=== PATIENT | female | born 1970 | race Two or more races ===

== ENCOUNTER 2016-11-09 10:51 | Emergency (ER) | payer MEDICAID ==
[~2016-11-09] VITALS: Ht 157.5 cm; Wt 113.4 kg
[2016-11-09 11:21] VITALS: BP 142/84
[2016-11-09 12:21] LABS: Basophils # (auto) 0.1 uL; Basophils % (auto) 0.8 % (0.0-2.0); Eosinophils # (auto) 0.2 uL; Eosinophils % (auto) 1.7 % (0.0-7.0); Hematocrit 40.7 % (36.0-46.0); Lymphocytes # (auto) 2.3 uL; Lymphocytes % (auto) 19.9 % (10.0-50.0); Mean Corpuscular Hemoglobin 29.1 pg (28.0-32.0); Mean Corpuscular Hgb Conc. 31.9 g/dL (32.0-36.0); Mean Corpuscular Volume 91.3 fL (80.0-100.0); Mean Platelet Volume 7.7 fL (7.4-10.4); Monocytes # (auto) 0.7 uL; Monocytes % (auto) 6.4 % (0.0-12.0); Neutrophils # (auto) 8.3 uL; Neutrophils % (auto) 71.2 % (37.0-80.0); Platelet Count (auto) 419 10^3/uL (140-450); Red Cell Distribution Width 13.1 % (11.6-16.0); White Blood Cell 11.6 10^3/uL (4.4-10.8)
[2016-11-09 12:52] LABS: Albumin 3.2 g/dL (3.4-5.0); BUN/Creatinine Ratio 13.8; Bilirubin, Total 0.6 mg/dL (0.2-1.0); Calcium 9.2 mg/dL (8.5-10.1); Potassium 4.2 mmol/L (3.5-5.1); Total Protein 7.9 g/dL (6.4-8.2)
== END 2016-11-09 13:59 | disposition left against medical advice (07) ==
LOC: ER 10:51
DX: M54.2 Cervicalgia (principal); Z53.21 Procedure and treatment not carried out due to patient leaving prior to being seen by health care provider
CPT/HCPCS: 36415; 80053; 85025

== ENCOUNTER 2016-11-10 05:24 | Emergency (ER) | payer MEDICAID ==
[~2016-11-10] VITALS: Ht 157.5 cm; Wt 113.9 kg
[2016-11-10 06:16] VITALS: BP 156/85
[2016-11-10] MEDS ORDERED: KETOROLAC TROMETH 60MG/2ML VIAL IM ONE (08:30)
[2016-11-10] MEDS ORDERED: DIAZEPAM 5 MG TAB PO ONE (08:30)
== END 2016-11-10 09:18 | disposition home or self-care (01) ==
LOC: ER 05:30
DX: M43.6 Torticollis (principal); M50.30 Other cervical disc degeneration, unspecified cervical region; I10 Essential (primary) hypertension; Z88.1 Allergy status to other antibiotic agents
CPT/HCPCS: 72040; 96372; 99284; J1885

== ENCOUNTER 2021-02-21 11:35 | Emergency (ER) | payer MEDICAID, OTHER ==
[~2021-02-21] VITALS: Ht 157.5 cm; Wt 115.2 kg
[2021-02-21 15:45] VITALS: BP 162/88
== END 2021-02-21 16:31 | disposition home or self-care (01) ==
LOC: ER 11:35
DX: S86.911A Strain of unspecified muscle(s) and tendon(s) at lower leg level, right leg, initial encounter (principal); X58.XXXA Exposure to other specified factors, initial encounter; Y93.89 Activity, other specified; Y92.89 Other specified places as the place of occurrence of the external cause; Y99.8 Other external cause status
CPT/HCPCS: 73590; 93970